=== PATIENT | female | born 1990 | race Caucasian/White ===

== ENCOUNTER 2018-11-04 08:03 | Emergency (ER) | payer OTHER ==
[~2018-11-04] VITALS: Ht 157.5 cm; Wt 55.3 kg
[2018-11-04 08:06] VITALS: BP 113/71
[2018-11-04] MEDS ORDERED: ALEVE220 MG PO (08:24)
[2018-11-04] MEDS ORDERED: CARISOPRODOL 3350 MG PO (09:24)
[2018-11-04] MEDS ORDERED: NORCO 5-325 TA1 EACH PO (09:24)
== END 2018-11-04 09:40 | disposition home or self-care (01) ==
LOC: ER 08:03
DX: S46.812A Strain of other muscles, fascia and tendons at shoulder and upper arm level, left arm, initial encounter (principal); F17.210 Nicotine dependence, cigarettes, uncomplicated; X50.0XXA Overexertion from strenuous movement or load, initial encounter; Y92.89 Other specified places as the place of occurrence of the external cause; Y93.89 Activity, other specified; Y99.8 Other external cause status

== ENCOUNTER 2019-02-11 07:20 | Emergency (ER) | payer OTHER ==
[~2019-02-11] VITALS: Ht 157.5 cm; Wt 62.1 kg
[~2019-02-11 07:20] MED LIST: ALEVE220 MG PO; CARISOPRODOL 3350 MG PO; NORCO 5-325 TA1 EACH PO
[2019-02-11] MEDS ORDERED: NAPROSYN500 MG PO (08:17)
[2019-02-11] MEDS ORDERED: TRAMADOL 50 MG50 MG PO (08:17)
[2019-02-11 08:50] VITALS: BP 116/78
== END 2019-02-11 08:51 | disposition home or self-care (01) ==
LOC: ER 07:20
DX: G56.03 Carpal tunnel syndrome, bilateral upper limbs (principal); M70.922 Unspecified soft tissue disorder related to use, overuse and pressure, left upper arm; M70.921 Unspecified soft tissue disorder related to use, overuse and pressure, right upper arm; F17.210 Nicotine dependence, cigarettes, uncomplicated

== ENCOUNTER 2019-05-21 11:15 | Emergency (ER) | payer OTHER ==
[~2019-05-21] VITALS: Ht 157.5 cm; Wt 63.5 kg
[~2019-05-21 11:15] MED LIST changes: +NAPROSYN500 MG PO; +TRAMADOL 50 MG50 MG PO
[2019-05-21 11:16] VITALS: BP 104/54
[2019-05-21] MEDS ORDERED: MEDROLDOSEPACK PO (11:35)
== END 2019-05-21 11:54 | disposition home or self-care (01) ==
LOC: ER 11:15
DX: G56.03 Carpal tunnel syndrome, bilateral upper limbs (principal); F17.210 Nicotine dependence, cigarettes, uncomplicated